=== PATIENT | male | born 1980 | race Hispanic/Latino ===

== ENCOUNTER 2017-07-24 07:15 | Day surgery (SDC) | payer OTHER ==
[~2017-07-24] VITALS: Ht 177.8 cm; Wt 89.4 kg
[~2017-07-24 07:15] MED LIST: SODIUM CHLORIDE 0.9% 1000ML 1,000 ML IV ONE
[2017-07-24 08:07] VITALS: BP 131/79
[2017-07-24] MEDS ORDERED: METF10004 PO (08:50)
[2017-07-24] MEDS ORDERED: LISI2.5T2 PO (08:50)
[2017-07-24] MEDS ORDERED: LOVA10TA2 PO (08:50)
[2017-07-24 10:32] VITALS: BP 106/58
== END 2017-07-24 11:15 | disposition home or self-care (01) ==
LOC: ENDO 07:15 → DAH 07:15 → ENDO 11:15
PROVIDERS: ATTEND Internal Medicine Gastroenterology
DX: K29.60 Other gastritis without bleeding (principal); E11.9 Type 2 diabetes mellitus without complications; E78.5 Hyperlipidemia, unspecified; L40.9 Psoriasis, unspecified; K21.0 Gastro-esophageal reflux disease with esophagitis
CPT/HCPCS: 43239; 82948 ×2; A4606; J7030